=== PATIENT | female | born 2000 | race Hispanic/Latino ===

== ENCOUNTER 2020-07-30 08:59 | Emergency (ER) | payer OTHER ==
[~2020-07-30] VITALS: Ht 157.5 cm; Wt 74.5 kg
[2020-07-30] MEDS ORDERED: SODIUM CHLORIDE 0.9% 50ML 50 ML ONE (09:24)
[2020-07-30] MEDS ORDERED: IOPAMIDOL 370 MG/ML 200 ML INFUS..BTL INJ ONE (09:24)
--- OUTSIDE RECORDS SUMMARY | 2020-07-30 09:56 | XMS REPORT | Continuity of Care Document ---
Author Author [facility] Organization [facility] Address [address] [place] [address] Phone Unavailable Care Team Providers Care Sexual Abuse Counsellor Name Role Phone TRINITY RVIERA NP Attphys Unavailable Problems Condition Name Condition Details Condition Category Status Onset Date Resolution Date Last Treatment Date Treating Clinician Comments Source Exposure to potentially hazardous body fluids Exposure to potentially hazardous body fluids Problem Active [facility] Establishing care with new doctor, encounter for Estab lishing care with new doctor, encounter for Problem Active [facility] Allergies, Adverse Reactions, Alerts This patient has no known allergies or adverse reactions. Family History Family Member Diagnosis Comments Start Date Stop Date Source Grandparent Family history of malignant neoplasm of thyroid [facility] Grandparent Family history of diabetes mellitus [facility] Grandparent Family history of essential hypertension [facility] Social History Smoking Status Start Date Stop Date Source Never smoker [facility] Medications This patient has no known medications. Vital Signs Vital Name Observation Time Observation Value Comments Source BP Systolic 2019-02-01 10:22:00 104 mm[Hg] Location: [place] on: Sitting [facility] BP Diastolic 2019-02-01 10:22:00 61 mm[Hg] Location: [place] on: Sitting [facility] Weight 2019-02-01 10:22:00 162.125 [lb_av] [facility] Height 2019-02-01 10:22:00 62 [in_us] [facility] Body Mass Index Calculated 2019-02-01 10:22:00 29.65 kg/m2 [facility] Temperature 2019-02-01 10:22:00 97.8 [degF] Method: Temporal [facility] Heart Rate 2019-02-01 10:22:00 80 /min Location: L Brachial Artery; [facility] Respiration Rate 2019-02-01 10:22:00 16 /min [facility] Procedures Procedure Date / Time Performed Performing Clinician Sour e [Q] CHLAMYDIA/N. GONORRHOEAE DNA, [facility] 2019-02-01 00:00:00 [facility] Encounters Start Date/Time End Date/Time Encounter Type Admission Type Attendi [facility] Care Department Encounter ID Source 2019-02-01 10:00:00 2019-02-01 10:00:00 Appointment; TRINITY RIVERA N P BECK, SHERI, NP [facility] [address] [id number] [facility] Results Test Description Test Time Test Comments Results Result Comments Source [Q] CHLAMYDIA/N. GONORRHOEAE DNA, [facility] 2019-02-01 00:00:00 Test Item CHLAMYDIAN TRACHOMATIS RNA, [facility]; Normal (te st code = 21138-6) NOT DETECTED NOT DETECTED N NEISSERIA GONORRHOEAE RNA, [facility]; Normal (hollie t code = 33776-7) NOT DETECTED NOT DETECTED N [facility]
--- NOTE | 2020-07-30 10:03 | Diagnostic Imaging Report ---
EXAM: CT Chest WITH contrast- Pulmonary Embolism Protocol INDICATION: Chest pain COMPARISON: None TECHNIQUE: Chest was scanned utilizing a multidetector helical scanner from the lung apex through the level of the diaphragm after administration of IV contrast. Thin section reconstructions were obtained with special concentration on the pulmonary arteries. Coronal and sagittal reformations were obtained. Pulmonary embolism protocol was performed. IV CONTRAST: 100 cc of Isovue 370 RADIATION DOSE: Total DLP: 403 mGy*cm Dose modulation, iterative reconstruction, and/or weight based adjustment of the mA/kV was utilized to reduce the radiation dose to as low as reasonably achievable. COMPLICATIONS: None FINDINGS: LINES/ TUBES: None. PULMONARY ARTERIES: No filling defect is identified within the pulmonary arteries to the segmental level. The subsegmental pulmonary arteries are not well opacified. Main pulmonary artery measures 2.4 cm in diameter. No right heart strain. LUNGS AND AIRWAYS: The central airways are patent. No focal consolidation or pulmonary edema. Incidental note of azygous lobe anatomic variant. PLEURA: The pleural spaces are clear. HEART AND MEDIASTINUM: The thyroid gland is normal. No mediastinal, hilar or axillary lymphadenopathy. The heart is normal in size.. There is no pericardial effusion. UPPER ABDOMEN: No acute findings in the upper abdomen. BONES: The visualized bony thorax is within normal limits. SOFT TISSUES: Unremarkable. IMPRESSION: No pulmonary embolism. No focal pneumonia or pulmonary edema. Signed by: Lynsey Fuentes MD on 07/30/2020 10:00 AM
--- NOTE | 2020-07-30 10:49 | Emergency Department Note ---
History of Present Illnes History of Present Illness Chief Complaint: Chest Pain History of Present Illness This is a 19 year old female Chief Complaint Comment Reports that she awoke at about 0600 with left sided chest pain that is worse when she tries to take a deep breath. . Historian: Patient Arrival Mode: Car Additional Treatment OVERNIGHT CASHIER: Ibuprofen 400mg at 0740 Onset (how long ago): day(s) (1) Location: left side Quality: dul Radiation: Reports non-radiation Severity: mild Onset quality: gradual Duration (how long): day(s) (1) Timing of current episode: intermittent Progression: waxing and waning Chronicity: new Context: Denies recent illness, Denies recent surgery, Denies recent immobilization, Denies recent travel, Denies trauma/injury, Denies new med ications, Denies hx of DVT/PE, Denies non-compliance w/ medications, Denies other Relieving factors: rest Exacerbating factors: movement Associated symptoms: Denies denies other symptoms, Denies confusion, Denies chest pain, Denies cough, Denies diaphoresis, Denies fever/chills, Denies headaches, Denies loss of appetite, Denies malaise, Denies nausea/vomiting, Denies rash, Denies seizure, Denies shortness of breath, Denies syncope, Denies weakness, Denies other Treatments prior to arrival: none Past Medical/Family History Physician Review I have reviewed the patient's past medical and family history. Any updates have been documented here. Past Medical History Recent Fever: No Clinical Suspicion of Infectio: No New/Unexplained Change in Ment: No Past Medical History: None Past Surgical History: None Social History Smoking Cessation: Never Smoker Counseling Performed: No Alcohol Use: None Any Illegal Drug Use: No Physically hurt or threatened: No Other Any Pre-Existing Lines (PICC,: No Review of Systems Review of Systems Constitutional: Reports no symptoms EENTM: Reports no symptoms Cardiovascular: Reports as per HPI Respiratory: Reports no symptoms Gastrointestinal: Reports no symptoms Genitourinary: Reports no symptoms; Denies as per HPI, Denies discharge, Denies dysuria, Denies frequency, Denies hematuria, Denies pain, Denies other Musculoskeletal: Reports no symptoms; Denies as per HPI, Denies back pain, Denies gout, Denies joint pain, Denies joint swelling, Denies muscle pain, Denies muscle stiffness, Denies neck pain, Denies other Integumentary: Reports no symptoms; Denies as per HPI, Denies change in color, Denies change in hair/nails, Denies dryness, Denies lesions, Denies lumps, Denies rash, Denies poor turgor, Denies ecchymosis, Denies other Neurological: Reports no symptoms; Denies as per HPI, Denies headache, Denies numbness, Denies paresthesia, Denies pre-existing deficit, Denies seizure, Denies tingling, Denies tremors, Denies weakness, Denies other Psychological: Reports no symptoms; Denies as per HPI, Denies anxiety, Denies depressed, Denies emotional problems, Denies other Endocrine: Reports no symptoms Hematological/Lymphatic: Reports no symptoms Physical Exam Related Data Allergies: Coded Allergies: No Known Allergies (Unverified , 07/30/20) Triage Vital Signs Vital Signs Date Time Temp Pulse Resp B/P (MAP) Pulse Ox O2 Delivery O2 Flow Rate FiO2 07/30/20 09:49 99.1 110 18 173/102 100 Room Air Vital signs reviewed: Yes Physical Exam CONSTITUTIONAL Constitutional: Present well-developed, Present well-nourished HENT HENT: Present normocephalic, Present atraumatic, Present oropharynx clear/moist, Present nose normal HENT L/R: Present left ext ear normal, Present right ext ear normal EYES Eyes: Reports PERRL, Reports conjunctivae normal NECK Neck: Present ROM normal PULMONARY Pulmonary: Present effort normal, Present breath sounds normal CARDIOVASCULAR Cardiovascular: Present regular rhythm, Present heart sounds normal, Present capillary refill normal, Present normal rate GASTROINTESTINAL Abdominal: Present soft, Present nontender, Present bowel sounds normal GENITOURINARY Genitourinary: Present exam deferred SKIN Skin: Present warm, Present dry MUSCULOSKELETAL Musculoskeletal: Present ROM normal NEUROLOGICAL Neurological: Present alert, Present oriented x 3, Present no gross motor or sensory deficits PSYCHOLOGICAL Psychological: Present mood/affect normal, Present judgement normal Results Laboratory Lab results reviewed: Yes Imaging Imaging results reviewed: Yes Procedures 12 Lead ECG Interpretation ECG Interpretation : ECG: ECG 1 Education Supervisor: Interpreted by ED physician Date: Jul 30, 2020 Time: 09:09 Rhythm: sinus rhythm Rate: normal BPM: 111 QRS axis: right Conduction: right bundle branch block ST segments normal: Yes Clinical Impression: abnormal ECG Assessment & Plan Medical Decision Making MDM CAD PE MUSCULOSKELETAL Reassessment Reassessment BETTER Assessment & Plan Final Impression: (1) Precordial chest pain Depart Disposition: HOME, SELF-CARE Last Vital Signs Date Time Temp Pulse Resp B/P (MAP) Pulse Ox O2 Delivery O2 Flow Rate FiO2 07/30/20 09:49 99.1 110 18 173/102 100 Room Air Medications in the ED Iopamidol 74,000 mg STK-MED ONCE INJ ; Start 07/30/20 at 09:24; Stop 07/30/20 at 09:21; Status DC Sodium Chloride 50 ml @ ud STK-MED ONCE .ROUTE ; Start 07/30/20 at 09:24; Stop 07/30/20 at 09:21; Status DC KRYSTIAN WETZEL MD Jul 30, 2020 10:49
[2020-07-30] MEDS ORDERED: CYCLOBENZAPRINE5 MG PO (10:50)
[2020-07-30] MEDS ORDERED: NORVASC2.5 MG PO (10:50)
[2020-07-30 11:00] VITALS: BP 134/85
== END 2020-07-30 10:59 | disposition home or self-care (01) ==
LOC: FSED 09:15
DX: R07.2 Precordial pain (principal); R94.31 Abnormal electrocardiogram [ECG] [EKG]
CPT/HCPCS: 71260; 80053; 81025; 84484; 85025; 93005; 99284; Q9967